=== PATIENT | female | born 1975 | race Caucasian/White ===

== ENCOUNTER 2017-03-30 23:42 | Emergency (ER) | payer MEDICAID ==
[~2017-03-30] VITALS: Ht 160 cm; Wt 64.5 kg
[~2017-03-30 23:42] MED LIST: FERR-18; PREN1TAB49
[2017-03-30 23:45] VITALS: Ht 160 cm; Wt 64.5 kg
[2017-03-31] MEDS ORDERED: IPRATROPIUM (NEB) 0.5 MG/2.5 ML AMP NEB STA (00:53)
[2017-03-31] MEDS ORDERED: ALBUTEROL 0.083% (NEB) 2.5 MG/3 ML AMP NEB STA (00:53)
[2017-03-31 01:50] LABS: URINE BLOOD (Dip) POC 2+ (NEGATIVE)
--- NOTE | 2017-03-31 02:37 | ERD ---
ER Documentation Chief Complaint Date/Time DATE: 03/31/17 TIME: 02:31 Chief Complaint C/O COUGH AND CONGESTION X5 DAYS +WHEEZING HPI This 42-year-old female presenting to emergency department today for reevaluation of cough. Patient reports cough, chest congestion with shortness of breath worsening since last night. Patient reports she saw her primary care physician 3 days ago and started on Keflex and Robitussin, taking medication as prescribed. Patient denies fever chills or fatigue, reports shortness of breath sputum production diagnosis described as white and clear. Patient reports intermittent wheezing, denies chest pain, palpitations or dizziness. Patient denies history of smoking. History of reactive airway disease or asthma. ROS All systems reviewed and are negative except as per history of present illness. Medications Home Meds Active Scripts Inhaler, Assist Devices (E-Z SPACER) 1 Each Spacer, 1 EACH MC, #1 Prov:LILI,VIVIANA 03/31/17 Albuterol Sulfate* (Ventolin HFA*) 18 Gm Hfa.aer.ad, 2 PUFF INHALATION Q4H, #1 INHALER Prov:LILI,VIVIANA 03/31/17 Reported Medications Ferrous Sulfate (Iron) 325 Mg Tablet 02/12/10 Vits W-Ca,Fe,Fa(<1MG) () 1 Tab Tablet 02/12/10 Allergies Allergies: Coded Allergies: No Known Allergy (Verified Allergy, Unknown, 02/12/10) PMhx/Soc Medical and Surgical Hx: pt denies Medical Hx History of Surgery: Yes (OVARIAN CYSTECTOMY) Anesthesia Reaction: No Hx Neurological Disorder: No Hx Respiratory Disorders: No Hx Cardiac Disorders: No Hx Psychiatric Problems: No Hx Miscellaneous Medical Probl: No Hx Alcohol Use: No Hx Substance Use: No Hx Tobacco Use: No Smoking Status: Never smoker Physical Exam Vitals Vitals stable, triage notes reviewed Physical Exam Const: Well-appearing, well-nourished, well-hydrated, no acute distress Head: Atraumatic Eyes: Normal Conjunctiva ENT: Normal External Ears, Nose and Mouth. Neck: Full range of motion..~ No meningismus. Resp: Expiratory wheeze auscultated, cough is dry no rales or rhonchi, no egophony or respiratory distress Cardio: Regular rate and rhythm, no murmurs Abd: Soft, non tender, non distended. Normal bowel sounds Skin: No petechiae or rashes Back: No midline or flank tenderness Ext: No cyanosis, or edema Neur: Awake and alert Psych: Normal Mood and Affect Results 24 hrs Laboratory Tests Test 03/31/17 01:54 Bedside Urine pH (LAB) 7.0 Bedside Urine Protein (LAB) Negative Bedside Urine Glucose (UA) Negative Bedside Urine Ketones (LAB) Negative Bedside Urine Blood 2+ Bedside Urine Nitrite (LAB) Negative Bedside Urine Leukocyte Esterase (L Negative Current Medications Medications (Trade) Dose Ordered Sig/[place] Route PRN Reason Start Time Stop Time Status Last Admin Dose Admin Albuterol (Proventil 0.083% (Neb)) 5 mg ONCE STAT NEB 03/31/17 00:53 03/31/17 01:00 DC 03/31/17 01:54 Ipratropium [place] (Atrovent 0.02% (Neb)) 0.5 mg ONCE STAT NEB 03/31/17 00:53 03/31/17 01:00 DC 03/31/17 01:54 Procedures/MDM This 42-year-old female presents to emergency department for reevaluation of cough, patient has seen primary care physician and started on Keflex and Robitussin taking as prescribed. Pneumonia suspected chest x-ray ordered, patient requests to have x-ray in her primary physician's office, states she has appointment tomorrow. Patient will receive albuterol, Atrovent hand-held nebulized treatment, reexamined after breathing treatment with improvement of expiratory wheeze, patient will be discharged home with albuterol [facility] pharmacy to provide spacer and teaching. Return to emergency department for fever, cough not responding to treatment, generalized worsening of symptoms. I feel the patient is stable for discharge at this time with outpatient management by primary care physician and follow-up tomorrow as discussed above.. I have discussed results, examination findings, the treatment plan with the patient and family present prior to discharge. Indications for emergent reevaluation, side effects of medication were also discussed. All questions were answered. Patient verbalizes understanding and agrees with plan of care. Departure Diagnosis: Primary Impression: Bronchitis Condition: Good Patient Instructions: Acute Bronchitis Additional Instructions: Thank you for for coming to [facility] for your care today. Please ask your nurse or provider if you have questions about your care today and do not leave until all your questions have been answered. Please use any medications given as directed and follow-up with your doctor (or the doctor you were referred to) in the next 2-3 days. If you do not have a primary care doctor you may follow up at the [facility] [place] (listed below). You may also use motrin and tylenol as needed for fever and/or pain unless instructed otherwise by your provider or nurse. Indications for more urgent follow-up have been discussed, but you may return to the Emergency Department at ANY time for any worrisome or worsening symptoms. If you have abdominal pain, please know that no test or exam you received is perfect and you should follow up within 8 hours for continued pain. If you had any imaging studies today, such as an X-Ray or CT Scan, these studies will be reviewed later by a radiologist. You will be called if there are important findings that were not identified today, so make sure the contact information you provided at registration is correct. If you received any narcotic pain control medicine today, such as Vicodin, Morphine or Dilaudid, your coordination and judgment may be affected for a number of hours. Please do not drive or operate heavy machinery, and you may want someone to assist you at home. If you were given a prescription for narcotic medication, be aware that it is very addictive- use sparingly and only if necessary. VIVIANA PEARSON Mar 31, 2017 02:37 VIVIANA PEARSON Mar 31, 2017 02:37
[2017-03-31] MEDS ORDERED: INHA1SPA53 MC (02:38)
[2017-03-31] MEDS ORDERED: ALBU18HF INHALATION (02:38)
[2017-03-31 02:42] VITALS: BP 138/77; PULSE 88; RESP 22
[2017-04-27 16:25] LABS: URINE BLOOD (Dip) POC 2+ (NEGATIVE)
== END 2017-03-31 02:42 | disposition home or self-care (01) ==
LOC: FTE 23:42
DX: J40 Bronchitis, not specified as acute or chronic (principal)
CPT/HCPCS: 81003; 94664; Z7610